=== PATIENT | female | born 1995 | race Caucasian/White ===

== ENCOUNTER 2018-04-08 04:26 | Emergency (ER) | payer OTHER ==
[~2018-04-08] VITALS: Ht 162.6 cm; Wt 68.0 kg
[2018-04-08] MEDS ORDERED: KETO10TA2 PO (05:58)
== END 2018-04-08 14:31 | disposition home or self-care (01) ==
LOC: ER 04:26
DX: H10.211 Acute toxic conjunctivitis, right eye (principal)